=== PATIENT | female | born 1975 | race Caucasian/White ===

== ENCOUNTER 2025-04-20 10:24 | Emergency (ER) | payer BC ==
[2025-04-20] MEDS: Ketorolac 30 MG/ML SDV IM ONE (13:31)
== END 2025-04-20 13:39 | disposition home or self-care (01) ==
LOC: DL.ED 10:24
DX: S93.402A Sprain of unspecified ligament of left ankle, initial encounter (principal); I10 Essential (primary) hypertension; E03.9 Hypothyroidism, unspecified; X50.1XXA Overexertion from prolonged static or awkward postures, initial encounter; Y93.89 Activity, other specified
CPT/HCPCS: 73610; 73630; 96372; 99283; A9270; J1885